=== PATIENT | female | born 1935 | race Caucasian/White ===

== ENCOUNTER 2022-12-24 09:19 | Outpatient (CLI) | payer MEDICARE, BC, SELFPAY ==
--- NOTE | 2022-12-24 09:36 | ECHO_ITS ---
Patient Info Name: Alanis Hassan Age: 87 years : 1935 Gender: Female Ht: 65 in Wt: 130 lbs BSA: 1.65 m2 HR: 70 bpm BP: 206 / 99 mmHg Technical Quality: Fair Exam Date: 12/24/2022 9:55 AM Exam Location: [facility] Patient Status: Outpatient Admit Date: 12/24/2022 Staff Ordering Physician: Raissa Bui MD [employer] Equipment Repairer: Janeen Aguirre RDCS Attending Provider: Raissa Bui MD Referring Physician: Ramya CHERY; Exam Type: CA echo doppler color flow Study Info Indications R01.1 - Cardiac murmur, unspecified Complete two-dimensional, color flow and Doppler transthoracic echocardiogram is performed. Summary 1. Complete two-dimensional, color flow and Doppler transthoracic echocardiogram is performed. 2. Left ventricular chamber dimension is normal. 3. Left ventricular systolic function is normal, estimated at 65-70%. 4. The left ventricular diastolic function is grade I diastolic dysfunction. 5. E/e' 17 is elevated. 6. Left atrial chamber dimension is mildly enlarged. 7. There is severe aortic valve sclerosis. 8. There is moderate to severe aortic valve stenosis with a peak velocity of 287 cm/s, mean gradient of 19 mmHg, and aortic valve area of 1.0 cm2. 9. There is mild aortic valve regurgitation. 10. The mitral valve has moderately calcified annulus and severe posterior prolapse. 11. There is mild anterior directed mitral valve regurgitation. 12. There is trace tricuspid valve regurgitation. 13. No pulmonary hypertension, estimated pulmonary arterial systolic pressure is 26 mmHg. Left Ventricle E/e' 17 is elevated. Left ventricular chamber dimension is normal. Left ventricular systolic function is normal, estimated at 65-70%. The left ventricular diastolic function is grade I diastolic dysfunction. Right Ventricle Right ventricular chamber dimension is normal. Right ventricular systolic function is normal. Left Atria Left atrial chamber dimension is mildly enlarged. Right Atria Right atrial chamber dimension is normal. Aortic Valve The aortic valve is trileaflet. There is severe aortic valve sclerosis. There is moderate to severe aortic valve stenosis with a peak velocity of 287 cm/s, mean gradient of 19 mmHg, and aortic valve area of 1.0 cm2. There is mild aortic valve regurgitation. Pulmonic Valve There is no pulmonic regurgitation. Mitral Valve The mitral valve has moderately calcified annulus and severe posterior prolapse. There is mild anterior directed mitral valve regurgitation. There is no mitral valve stenosis. Tricuspid Valve There is trace tricuspid valve regurgitation. No pulmonary hypertension, estimated pulmonary arterial systolic pressure is 26 mmHg. Pericardium/Pleural There is no pericardial effusion. Inferior Vena Cava Normal inferior vena cava with >50% collapse upon inspiration consistent with normal right atrial pressure, 5 mmHg. Aorta The aortic root size at the sinus of Valsalva is normal. Left Ventricular Outflow Tract Name Value Normal LVOT 2D LVOT Diameter 2.0 cm LVOT Doppler LVOT Peak Gradient 4 mmHg LVOT Mean Gradient 2 mmHg LVOT VTI
== END 2022-12-24 09:20 | disposition home or self-care (01) ==
LOC: ANHCARD 09:19
PROVIDERS: PCP Family Medicine; Visit Provider Family Medicine
DX: R01.1 Cardiac murmur, unspecified (principal); I10 Essential (primary) hypertension; I34.0 Nonrheumatic mitral (valve) insufficiency; I35.1 Nonrheumatic aortic (valve) insufficiency
CPT/HCPCS: 93306

== ENCOUNTER 2023-09-18 09:29 | Outpatient (CLI) | payer MEDICARE, SELFPAY ==
--- NOTE | ~2023-09-18 | XR_ITS ---
Lumbosacral Spine: AP and lateral views Clinical History: Pain Findings: Moderate to severe T12 compression fracture present. There is 11 mm anterolisthesis of L4 [place] L5. There is severe facet arthropathy throughout the lumbar spine. There is moderate to severe de generative disc 9 throughout the lumbar spine, worst at L3-L4 and L4-L5. Possible mild loss of height of L4. The sacroiliac joints are normally outlined. Impression: Moderate to severe T12 compression fracture. Possible mild loss of height of L4. 11 mm anterolisthesis of L4 over L5. 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 Reviewed, dictated and finalized at location . Impression: Moderate to severe T12 compression fracture. Possible mild loss of height of L4. 11 mm anterolisthesis of L4 over L5. 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
--- NOTE | ~2023-09-18 | XR_ITS ---
Thoracic spine: Clinical Indication: Back pain AP and lateral views were performed. Moderate to severe compression fractures of T7 and T12 are present. There are mild scattered degenera tive disc changes in the thoracic spine. The intervertebral disc spaces appear normal. Paravertebral soft tissues appear normal. Impression: T7 and T12 compression fractures, as detailed above. Reviewed, dictated and finalized at [facility]. Impression: T7 and T12 compression fractures, as detailed above.
[2023-09-18 10:01] LABS: Basophils Absolute Auto 0.1 K/mm3 (0.0-0.1); Basophils Percent Auto 1.3 % (0.2-1.2); Eosinophils Absolute Auto 0.1 K/mm3 (0-0.3); Eosinophils Percent Auto 0.9 % (0-4.4); Hematocrit 42.3 % (37.0-47.0); Hemoglobin 13.4 g/dL (12.0-15.0); Immature Granulocyte Absolute 0.03 K/mm3 (0.00-0.031); Immature Granulocyte Percent A 0.4 % (0-0.5); Lymphocytes Absolute Auto 1.16 K/mm3 (0.9-3.2); Lymphocytes Percent Auto 14.8 % (18.3-44.2); Mean Corpuscular HGB Conc 31.7 g/dl (32-36); Mean Corpuscular Hemoglobin 30.9 pg (26-34); Mean Corpuscular Volume 97.5 fl (80-100); Monocytes Absolute Auto 0.5 K/mm3 (0.1-0.6); Monocytes Percent Auto 6.4 % (2.6-8.5); Neutrophils Percent Auto 76.2 % (45.5-73.1); Platelet Count Result 271 k/mm3 (150-375); Red Blood Count 4.34 M/mm3 (4.2-5.4); Red Cell Distribution Width 14.1 % (11.5-14.5); White Blood Count 7.8 K/mm3 (4.5-10.0)
[2023-09-18 11:07] LABS: Alanine Aminotransferase 11 U/L (6-35); Albumin Level 4.7 g/dL (3.5-5.1); Alkaline Phosphatase 91 U/L (38-126); Anion Gap 10 mmol/L (4-12); Aspartate Amino Transferase 21 U/L (14-36); Bilirubin,Total 0.5 mg/dL (0.2-1.3); Blood Urea Nitrogen 27 mg/dL (7-17); Calcium 9.8 mg/dL (8.4-10.2); Carbon Dioxide 22 mmol/L (22-30); Chloride 109 mmol/L (98-107); Cholesterol 222 mg/dL (0-200); Estimated Glomerular Filt Rate 42; Glucose 122 mg/dL (65-110); HDL Direct 91 mg/dL; Potassium 3.7 mmol/L (3.4-5.0); Sodium 141 mmol/L (137-145); Triglycerides 132 mg/dL (<150)
[2023-09-18 11:17] LABS: LDL Cholesterol Direct 93 mg/dL
[2023-09-18 11:58] LABS: Free T4 Free Thyroxine 1.49 ng/mL (0.78-2.19)
[2023-09-18 13:36] LABS: Creatine Kinase 47 U/L (30-135)
== END 2023-09-18 09:30 | disposition home or self-care (01) ==
PROVIDERS: PCP Family Medicine; Visit Provider Family Medicine
DX: R29.898 Other symptoms and signs involving the musculoskeletal system (principal); I10 Essential (primary) hypertension; E03.9 Hypothyroidism, unspecified; E78.2 Mixed hyperlipidemia; S22.080A Wedge compression fracture of T11-T12 vertebra, initial encounter for closed fracture; X58.XXXA Exposure to other specified factors, initial encounter
CPT/HCPCS: 36415; 72070; 72100; 80053; 80061; 82550; 84439; 84443; 85025

== ENCOUNTER 2023-09-28 08:51 | Outpatient (CLI) | payer MEDICARE, SELFPAY ==
--- NOTE | ~2023-09-28 | MR_ITS ---
EXAMINATION: MR brain/brain stem wo con DATE: 09/28/2023 10:28 INDICATION: Dementia in other diseases classified elsewhere. TECHNIQUE: Magnetic resonance imaging (MRI) of the brain and brainstem was performed without intraven ous contrast. COMPARISON: None. FINDINGS: There are scattered areas of nonspecific increased T2-weighted signal intensity in the cere bral white matter. There is a small old infarct in right cerebellum. There is no intracranial hemorrh age, acute infarction, or abnormal intracranial mass lesion. The ventricles are normal in size. There are likely changes of ocular lens replacement surgeries. There is mild mucosal thickening in the par anasal sinuses. There is a trace right mastoid effusion. IMPRESSION: 1. 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 2. Extensive nonspecific cerebral white matter disease, which likely represents chronic small vessel ischemic disease. Reviewed, dictated and finalized at location E.
== END 2023-09-28 08:52 | disposition home or self-care (01) ==
LOC: ANHIMG 08:52
PROVIDERS: PCP Family Medicine; Visit Provider Family Medicine
DX: G30.9 Alzheimer's disease, unspecified (principal); F02.80 Dementia in other diseases classified elsewhere, unspecified severity, without behavioral disturbance, psychotic disturbance, mood disturbance, and anxiety; R90.82 White matter disease, unspecified; I25.2 Old myocardial infarction
CPT/HCPCS: 70551

== ENCOUNTER 2023-10-07 09:21 | Outpatient (CLI) | payer MEDICARE, SELFPAY ==
--- NOTE | 2023-10-07 11:00 | NEURO_ITS ---
Impression: # Complains of left foot drop. 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 # Abnormal Needle/EMG exam with active fibs and decreased motor unit potentials in muscles of peroneal nerve distribution. # Clinical correlation recommended. Nerve Conduction Studies Anti Sensory Summary Table Stim Site NR Peak (ms) P-T Amp (?V) Site1 Site2 Delta-P (ms) Dist (cm) Caleb (m/s) Left Sup Fibular Anti Sensory (Ant Lat Mall) NO RESPONSE 14 cm NR 14 cm Ant Lat Mall 16.0 Left Sural Anti Sensory (Lat Mall) Calf 3.5 6.2 Calf Lat Mall 3.5 16.0 46 Motor Summary Table Stim Site NR Onset (ms) O-P Amp (mV) Site1 Site2 Delta-0 (ms) Dist (cm) Caleb (m/s) Left Peroneal Motor (Vastus Med) Ankle 4.5 1.2 Popit Ankle 0.0 Popit NR B Fib Ankle 6.8 33.0 49 B Fib 11.3 0.8 Left Tibial Motor (Abd Diaz Brev) Ankle 4.7 1.4 Knee Ankle 8.8 40.0 45 Knee 13.5 1.0 F Wave Studies NR F-Lat (ms) L-R F-Lat (ms) Left Peroneal (Mrkrs) (EDB) NO RESPONSE NR Left Tibial (Mrkrs) (Abd Hallucis) 56.40 EMG Side Muscle Nerve Root Ins Act Fibs Amp Dur Recrt Comment Left AntTibialis Dp Br Fibular L4-5 Nml 3+ Decr >12ms +3 Left Gastroc Tibial S1-2 Nml Nml Decr Nml +1 Left Fibularis Long Sup Br Fibular L5-S1 Nml 3+ Decr >12ms +3 Left Flex Dig Long Tibial L5-S2 Nml Nml Decr Nml +1 Left Ext Dig Brev Dp Br Fibular L5, S1 Nml 3+ Decr >12ms +3 Left QuadratusFem QuadFemoris L4-5, S1 Nml Nml Decr Nml +1 MTDD
== END 2023-10-07 09:22 | disposition home or self-care (01) ==
LOC: ANHNEURO 09:22
PROVIDERS: PCP Family Medicine; Visit Provider Family Medicine
DX: R29.898 Other symptoms and signs involving the musculoskeletal system (principal); M21.372 Foot drop, left foot; R94.131 Abnormal electromyogram [EMG]
CPT/HCPCS: 95886; 95908